=== PATIENT | male | born 1970 | race Caucasian/White ===

== ENCOUNTER → 2018-04-06 | Outpatient (CLI) | payer BC ==
--- NOTE | 2018-04-06 19:30 | MR ---
EXAMINATION TYPE: MR cervical spine wo con DATE OF EXAM: 04/06/2018 COMPARISON: None HISTORY: Neck pain and shoulder pain TECHNIQUE: Multiplanar, multisequence images of the cervical spine were acquired. Cervical vertebra have normal alignment. Posterior elements are intact. Disc spaces are fairly well-m aintained. There are small posterior disc herniations at C3-4 C4-5 C5-6 C6-7 without significant impi ngement on the cervical spinal cord. There is developmentally adequate spinal canal. Cervical spinal cord has normal signal pattern. There is no edema. Brainstem appears intact. There is no paraspinal m ass. IMPRESSION: There is multilevel mild posterior disc bulging and herniation as above from C3 to C7. No spinal sten osis. No fracture.
== END | disposition home or self-care (01) ==
LOC: RADMRIMAIN 18:36
PROVIDERS: ATTEND Family Medicine
DX: M50.21 Other cervical disc displacement, high cervical region (principal)
CPT/HCPCS: 72141

== ENCOUNTER → 2018-04-14 | Outpatient (CLI) | payer BC ==
--- NOTE | 2018-04-14 12:42 | MR ---
EXAMINATION TYPE: MR lumbar spine wo con DATE OF EXAM: 04/14/2018 COMPARISON: NONE HISTORY: Foot drop left leg TECHNIQUE: T1 and T2 axial and sagittal images of the lumbar spine are submitted. FINDINGS: There is no abnormal signal seen within the visualized spinal cord or paraspinal soft tissu es. Note is made there may be a transition segment in correlation with the numbering system should be utilized prior to any surgical intervention. At L1-2 there is atrophy of the facets. No disc herniation or canal stenosis. No foraminal encroachme nt. At L2-3 there is degenerative disc disease with broad-based disc herniation resulting in moderate ant erior compression of the thecal sac. Hypertrophy of the facet joints and ligamentum flavum are noted there is central stenosis and bilateral foraminal encroachment. At L3-4 there is degenerative disc disease with focal central disc herniation resulting in moderate c ompression of the thecal sac. Facet arthropathy and ligamentum flavum hypertrophy noted and there is moderate bilateral foraminal encroachment. At L4-5 there is degenerative disc disease with marked facet arthropathy. There is broad-based disc h erniation greater paracentrally and laterally to left. There are likely some compression of the exiti ng nerve root. There is moderate compression of the thecal sac. Moderate bilateral foraminal encroach ment. At L5-S1 there is no disc herniation or canal stenosis. No foraminal encroachment. IMPRESSION: 1. Correlate with the numbering system utilized on the exam prior to any surgical intervention. 2. Disc herniations with significant compression of the thecal sac and foraminal encroachment L2-3, L 3-4 and L4-L5 as discussed above. Foraminal encroachment at all levels with suspected nerve root comp ression on the left at L4-L5
== END | disposition home or self-care (01) ==
LOC: RADMRIMAIN 11:42
PROVIDERS: ATTEND Neurological Surgery
DX: M51.26 Other intervertebral disc displacement, lumbar region (principal); M21.372 Foot drop, left foot
CPT/HCPCS: 72148

== ENCOUNTER 2022-06-08 19:43 | Emergency (ER) | payer BC ==
[2022-06-08 20:01] VITALS: BP 152/107; PULSE 90; RESP 20; TEMP 97.9
[2022-06-08 20:46] LABS: Basophils % (A) 1 %; Eosinophils # (A) 0.2 k/uL (0-0.7); Eosinophils % (A) 3 %; HCT 45.6 % (39.0-53.0); HGB 15.6 gm/dL (13.0-17.5); Lymphocytes # (A) 2.4 k/uL (1.0-4.8); Lymphocytes % (A) 32 %; MCH 29.2 pg (25.0-35.0); MCHC 34.3 g/dL (31.0-37.0); MCV 85.1 fL (80.0-100.0); Mean Platelet Volume 7.1; Monocytes # (A) 0.5 k/uL (0-1.0); Monocytes % (A) 6 %; Neutrophils # (A) 4.2 k/uL (1.3-7.7); Neutrophils % (A) 57 %; Platelet Count 253 k/uL (150-450); RBC 5.36 m/uL (4.30-5.90); RDW 13.3 % (11.5-15.5); WBC 7.5 k/uL (3.8-10.6)
[2022-06-08 20:55] LABS: Partial Thromboplastin Time 26.1 sec (22.0-30.0); Prothrombin Time 10.4 sec (9.0-12.0)
[2022-06-08 20:56] LABS: ALT 45 U/L (4-49); AST 36 U/L (17-59); African American GFR (CKD) >90 (>60 ml/min/1.73 sqM); Alkaline Phosphatase 88 U/L (38-126); Anion Gap 9 mmol/L; Blood Urea Nitrogen 14 mg/dL (9-20); Calcium 9.1 mg/dL (8.4-10.2); Carbon Dioxide 25 mmol/L (22-30); Chloride 106 mmol/L (98-107); Glucose 92 mg/dL (74-99); Non-African American GFR(CKD) >90 (>60 ml/min/1.73 sqM); Sodium 140 mmol/L (137-145); Total Bilirubin 0.5 mg/dL (0.2-1.3); Total Protein 7.6 g/dL (6.3-8.2)
--- NOTE | 2022-06-08 21:13 | XR ---
EXAMINATION TYPE: XR chest 2V DATE OF EXAM: 06/08/2022 8:23 PM COMPARISON none TECHNIQUE: XR chest 2V Frontal and lateral views of the chest. CLINICAL INDICATION:Male, 51 years old with history of Weakness; FINDINGS: Lungs/Pleura: There is no evidence of pleural effusion, focal consolidation, or pneumothorax. Pulmonary vascularity: Unremarkable. Heart/mediastinum: Cardiomediastinal silhouette is prominent in size. Musculoskeletal: No acute osseous pathology. There is fixation hardware in the lower cervical spine. IMPRESSION: No acute cardiopulmonary disease/process.
--- NOTE | 2022-06-08 21:37 | ED ---
General Adult HPI - General Chief complaint: Weakness Stated complaint: BP High Time Seen by Provider: 06/08/22 21:10 Source: patient, RN notes reviewed Mode of arrival: ambulatory Limitations: no limitations - History of Present Illness Initial comments: Patient went for a podiatry appointment this morning was found be hypertensive with blood pressure of 157/101. Patient then went home and checked her blood pressure several times. Patient ended up going to urgent care and still had a systolic in the 150s. Patient was sent here for evaluation. Patient essentially asymptomatic. Denying any chest pain or shortness of breath. No palpitations. No headache, no fever or chills, no changes in vision or hearing, no sore throat or difficulty with speech, no neck pain, no chest pain or shortness of breath, no abdominal pain, no nausea or vomiting, no changes in urination or bowel movements, no numbness or tingling, no extremity pain, no skin rashes or lesions. Past medical, surgical, social, and family history reviewed. - Related Data Allergies Allergy/AdvReac Type Severity Reaction Status Date / Time Iodinated Contrast Media Allergy Swelling Verified 06/08/22 20:02 morphine AdvReac Nausea & Verified 06/08/22 20:02 Vomiting Review of Systems ROS Statement: Those systems with pertinent positive or pertinent negative responses have been documented in the HPI. ROS Other: All systems not noted in ROS Statement are negative. Past Medical History Past Medical History: No Reported History Additional Past Medical History / Comment(s): diverticulitis History of Any Multi-Drug Resistant Organisms: None Reported Past Surgical History: Orthopedic Surgery Additional Past Surgical History / Comment(s): lumbar fusion, cervical fusion. colon resection Past Psychological History: No Psychological Hx Reported Smoking Status: Never smoker Past Alcohol Use History: Occasional Past Drug Use History: None Reported General Exam - General Exam Comments Initial Comments: Patient does not appear to be ill or toxic. Limitations: no limitations General appearance: alert, in no apparent distress Head exam: Present: atraumatic, normocephalic, normal inspection Eye exam: Present: normal appearance, PERRL, EOMI. Absent: scleral icterus, conjunctival injection, periorbital swelling ENT exam: Present: normal exam, mucous membranes moist Neck exam: Present: normal inspection. Absent: tenderness, meningismus, lymphadenopathy Respiratory exam: Present: normal lung sounds bilaterally. Absent: respiratory distress, wheezes, rales, rhonchi, stridor Cardiovascular Exam: Present: regular rate, normal rhythm, normal heart sounds. Absent: systolic murmur, diastolic murmur, rubs, gallop, clicks GI/Abdominal exam: Present: soft. Absent: distended, tenderness, guarding, rebound, rigid Extremities exam: Present: normal inspection, full ROM, normal capillary refill. Absent: tenderness, pedal edema, joint swelling, calf tenderness Back exam: Present: normal inspection Neurological exam: Present: alert, oriented X3, CN II-XII intact Psychiatric exam: Present: normal affect, normal mood Skin exam: Present: warm, dry, intact, normal color. Absent: rash Course Vital Signs 06/08/22 19:57 Temperature 97.9 F Pulse Rate 90 Respiratory 20 Rate Blood Pressure 152/107 O2 Sat by Pulse 99 Oximetry EKG Findings - EKG Comments: EKG Findings:: EKG done at 2004 reveals sinus rhythm with marked sinus arrhythmia, incomplete right bundle-branch block with an RSR pattern in lead V1. Normal intervals. Normal axis. Normal QRS morphology. Patient does have an inverted or biphasic wave in lead 3. No evidence for acute changes. Study read by me. Reviewed by Dr. Phipps Medical Decision Making - Medical Decision Making Patient sent in by urgent care for asymptomatic hypertension. Asymptomatic hypertensionWill check EKG, renal function, urinalysis, and chest x-ray. The case was discussed in detail with ED attending physician. Presentation, findings, treatment plan discussed in detail. Stamp Presser Dr. Phipps - Lab Data Result diagrams: 06/08/22 20:05 06/08/22 20:05 Lab Results 06/08/22 06/08/22 06/08/22 Range/Units 20:05 20:05 20:05 WBC 7.5 (3.8-10.6) k/uL RBC 5.36 (4.30-5.90) m/uL Hgb 15.6 (13.0-17.5) gm/dL Hct 45.6 (39.0-53.0) % MCV 85.1 (80.0-100.0) fL MCH 29.2 (25.0-35.0) pg MCHC 34.3 (31.0-37.0) g/dL RDW 13.3 (11.5-15.5) % Plt Count 253 (150-450) k/uL MPV 7.1 Neutrophils % 57 % Lymphocytes % 32 % Monocytes % 6 % Eosinophils % 3 % Basophils % 1 % Neutrophils # 4.2 (1.3-7.7) k/uL Lymphocytes # 2.4 (1.0-4.8) k/uL Monocytes # 0.5 (0-1.0) k/uL Eosinophils # 0.2 (0-0.7) k/uL Basophils # 0.0 (0-0.2) k/uL PT 10.4 (9.0-12.0) sec INR 1.0 (<1.2) APTT 26.1 (22.0-30.0) sec Sodium 140 (137-145) mmol/L Potassium 4.0 (3.5-5.1) mmol/L Chloride 106 (98-107) mmol/L Carbon Dioxide 25 (22-30) mmol/L Anion Gap 9 mmol/L BUN 14 (9-20) mg/dL Creatinine 0.68 (0.66-1.25) mg/dL Est GFR (CKD-EPI)AfAm >90 (>60 ml/min/1.73 sqM) Est GFR (CKD-EPI)NonAf >90 (>60 ml/min/1.73 sqM) Glucose 92 (74-99) mg/dL Calcium 9.1 (8.4-10.2) mg/dL Total Bilirubin 0.5 (0.2-1.3) mg/dL AST 36 (17-59) U/L ALT 45 (4-49) U/L Alkaline Phosphatase 88 (38-126) U/L Troponin I (0.000-0.034) ng/mL Total Protein 7.6 (6.3-8.2) g/dL Albumin 5.0 (3.5-5.0) g/dL 06/08/22 Range/Units 20:05 WBC (3.8-10.6) k/uL RBC (4.30-5.90) m/uL Hgb (13.0-17.5) gm/dL Hct (39.0-53.0) % MCV (80.0-100.0) fL MCH (25.0-35.0) pg MCHC (31.0-37.0) g/dL RDW (11.5-15.5) % Plt Count (150-450) k/uL MPV Neutrophils % % Lymphocytes % % Monocytes % % Eosinophils % % Basophils % % Neutrophils # (1.3-7.7) k/uL Lymphocytes # (1.0-4.8) k/uL Monocytes # (0-1.0) k/uL Eosinophils # (0-0.7) k/uL Basophils # (0-0.2) k/uL PT (9.0-12.0) sec INR (<1.2) APTT (22.0-30.0) sec Sodium (137-145) mmol/L Potassium (3.5-5.1) mmol/L Chloride (98-107) mmol/L Carbon Dioxide (22-30) mmol/L Anion Gap mmol/L BUN (9-20) mg/dL Creatinine (0.66-1.25) mg/dL Est GFR (CKD-EPI)AfAm (>60 ml/min/1.73 sqM) Est GFR (CKD-EPI)NonAf (>60 ml/min/1.73 sqM) Glucose (74-99) mg/dL Calcium (8.4-10.2) mg/dL Total Bilirubin (0.2-1.3) mg/dL AST (17-59) U/L ALT (4-49) U/L Alkaline Phosphatase (38-126) U/L Troponin I <0.012 (0.000-0.034) ng/mL Total Protein (6.3-8.2) g/dL Albumin (3.5-5.0) g/dL - Radiology Data Radiology results: report reviewed, image reviewed Chest x-ray read by me reveals no evidence of acute pathology. Concur with radiology interpretation Disposition Clinical Impression: Hypertension Disposition: HOME SELF-CARE Condition: Good Instructions (If sedation given, give patient instructions): DASH Eating Plan (ED), Hypertension (ED) Additional Instructions: Follow-up with your regular physician as directed. Return to the ER immediately if any symptoms worsen, new symptoms arise, or any other problems develop. Check your blood pressure once or twice a day and write down the value. Take it to your appointment with you. Call tomorrow morning at 8 AM for follow-up appointment with your regular physician. Review the instructions for elevated blood pressure Is patient prescribed a controlled substance at d/c from ED?: No Referrals: Cheo Mcclure MD [Primary Care Provider] - 1-2 days Time of Disposition: 22:59
== END 2022-06-08 23:20 | disposition home or self-care (01) ==
LOC: EC 19:43
DX: I10 Essential (primary) hypertension (principal); I45.10 Unspecified right bundle-branch block; I49.8 Other specified cardiac arrhythmias; Z91.041 Radiographic dye allergy status; Z88.5 Allergy status to narcotic agent
CPT/HCPCS: 36415; 71046; 80053; 84484; 85025; 85610; 85730; 93005; 99285